=== PATIENT | male | born 1985 | race Caucasian/White ===

== ENCOUNTER 2019-01-06 06:24 | Day surgery (SDC) | payer MEDICAID, SELFPAY ==
[2019-01-06] VITALS (7 sets, daily range): BP systolic 104–134; BP diastolic 59–84; PULSE 59–71; RESP 16–17; TEMP 36–36.9; O2SAT 91–99; BMI 23.3
[2019-01-06] MEDS: Bacitracin 500 UNITS/GM PACKET (07:40)
--- NOTE | 2019-01-06 08:13 | OP.PCM_ITS ---
Problem List (1) Disorder of right pinna Status: Chronic Report of Operation Date of Procedure: 01/06/19 Pre-Operative Diagnosis: Chronic cartilage cyst of right ear Post-Operative Diagnosis: Same Surgery/Procedure Performed:: Excision of portion of cartilage of right ear Description of Surgical Findings:: Juliano is a 34-year-old male who historically developed a cystic lesion of the left scaphoid area of the ear that failed to resolve with extensive medical therapy and ultimately required surgical excision for remediation. He now presents with a similar lesion recurring on the right side again over the scaphoid portion of the right external ear. Given his prior history and the recurrence of this lesion on the contralateral side the above procedure was again offered for definitive treatment as this did cause him some discomfort which is acutely worsened after attempting to express material from the site by applying external pressure. The risks, alternatives, potential benefits, and complications were discussed at length and any questions answered to the patient and/or caregiver's satisfaction. Witnessed informed consent was obtained in the office, and the patient and/or caregiver was agreeable to proceed. Procedure went as follows: The patient was identified in the preoperative holding brought to the operating room was placed under monitored anesthesia care. When appropriate anesthesia obtained, 1% lidocaine with 100,000 epinephrine was then injected for a auricular block for a total of 4 cc. After lying for vasoconstriction, a 15 blade scalpel was then used to make an incision within the groove along the helical rim 2.5 cm in length. Encountered within the layers of the cartilage was a yellow orange mucinous material which was fully expressed and removed. The skin overlying the lateral aspect of the cartilaginous cyst was then freed from the underlying cartilage and this was then removed with its cartilaginous layer and perichondrium. This was then widely debrided to remove the entire lateral surface of the cystic component of the ear cartilage. Using a sponge the underlying cartilage was abraded of any residual adherent and mucus secreting tissue. The resected portion of the cyst wall was then sent for pathologic evaluation. The wound was then closed with interrupted 5-0 Monocryl suture along the skin edge with in terrupted quilting stitches applied through and through the skin of the ear to obliterate the space and prevent reaccumulation of the cystic fluid. The patient was then returned to anesthesia where he was revived without comp occasion having tolerated the procedure well. Area excised resulting in a 2.5 x 2 cm portion of the cartilage of the superior aspect of the external ear. Type of Anesthesia:: MAC/Supplemental/Local Anesthesiologist: Yunior Clifford Special Medications: none Specimen's removed: cartilage cyst of external ear Drains: none Estimated Blood Loss (mL): 5 mL Fluids Replaced: 600 mL - Complications none - Admit VTE Documentation VTE Present on Admission: No VTE Mechan Device Prophylaxis: SCD's VTE Pharm Prophylaxis ordered?: No
--- NOTE | 2019-01-06 08:15 | PCM.DC ---
- Discharge Diagnoses Current Active Problems: Current Active and Chronic Problems Disorder of right pinna (Chronic) You will use the following diet at home:: No restrictions Your food should be the consistency of: Regular Discharge Activity: Return to Normal Activity, May not drive while taking narcotic pain medications. Call your doctor if your incision/area has: Continuous Slow Oozing, Increased Pain/ Swelling, Foul Smelling Discharge, Swelling at the incision site Call your doctor if you observe: Fever of 101 or Higher, Uncontrolled pain Cleanse incision/area with: Keep Dressing Clean & Dry Allergies/Adverse Reactions: Allergies No Known Allergies Allergy (Verified 01/06/19 06:42) Medications to take at Discharge Albuterol Inhaler [Ventolin Hfa (SP)] 1 - 2 puff INHALATION Q4H PRN PRN 01/03/19 Hydrocodone Bitart/Apap 5-325 [[place] 5MG-325MG] 1 - 2 tablet PO Q4H PRN PRN 01/03/19 Paroxetine HCl [Paxil] 10 mg PO DAILY 01/03/19 Primary Care Physician: Thomas Le [NON-STAFF] - Test Results: Test results from this visit will be discussed in further detail at your follow-up appointment, if applicable. Please Follow Up With: Nabor Lisa MD When: 2 weeks
--- NOTE | 2019-01-06 08:20 | CYST_PTH ---
PATIENT: ANABEL MARQUIS [place] [facility] [place][id number] AGE/SX: 34/M ROOM: RE01/06/[address]: Dr. Nabor Lisa MD : 1985 BED: DIS: 01/06/2019 SPEC #: [id number] RECD: 01/06/19 14:58 STATUS: VETO CARLY #: [id number] DMITRIY: 01/06/19 08:[address]: Nabor Lisa DEPT: SURGICAL PATHOLOGY RECD BY: Bethel Rankin ENTERED: 01/09/19 08:11 SP TYPE: Cyst OTHR DR: No Primary Care Phys Tissues: Ear, NOS Procedures: Surgery Specimen Level IV HEADER OPERATION: Excision external cyst, ear PRE-OP DIAGNOSIS: Disorder of right pinna TISSUE SUBMITTED: Cystic lesion right ear MICROSCOPIC DIAGNOSIS Cystic lesion of right ear, biopsy: Benign fibrous wall cyst. See microscopic description. AM:allison 2/19/19 COMMENT Case has been reviewed in consultation with Dr. Jones who concurs with the above diagnosis. IDC:GRACIE MICROSCOPIC DESCRIPTION Slides are reviewed. Sections show benign fibrous wall cyst with associated recent hemorrhage surrounded by benign fibrocartilaginous tissue. There is no evidence of malignancy. GROSS DESCRIPTION Received in fixative is one container labeled with the patient's name and designated cystic lesion right ear. The specimen consists of two pieces of estevez soft tissue measuring 1.2 x 0.6 x 0.1 cm and 0.5 x 0.2 x 0.1 cm. The larger piece is bisected. The entire specimen is submitted in one cassette. / Gumaro 01/09/19 TC:5 CPT: 92883
== END 2019-01-06 11:26 | disposition home or self-care (01) ==
LOC: SDC 06:26 → AC 06:27
PROVIDERS: Referring Provider Otolaryngology; Visit Provider Otolaryngology
PROC: (CPT 69100; principal; 2019-01-06 08:05)
DX: H61.101 Unspecified noninfective disorders of pinna, right ear (principal); J33.8 Other polyp of sinus; J45.909 Unspecified asthma, uncomplicated; D71 Functional disorders of polymorphonuclear neutrophils; J34.2 Deviated nasal septum
CPT/HCPCS: 00120; 69100; 88304; 88305; J7120; J2405

== ENCOUNTER → 2019-05-22 16:51 | Outpatient (CLI) | payer MEDICAID, SELFPAY ==
[2019-01-06 06:43] VITALS: BMI 23.3
--- NOTE | 2019-05-22 17:00 | CT_ITS ---
STUDY: CT MAXILLOFACIAL SINUSES REASON FOR EXAM: Male, 34 years old. Nasal polyp, sinus congestion x 1 year, trouble breathing thru nose. RADIATION DOSAGE (If Supplied By Facility): CTDIvol = ( 33.45 ) mGy, DLP = ( 834.91 ) mGycm TECHNIQUE: The patient was scanned in a multi detector CT scanner. High resolution axial imaging was performed without the administration of intravenous contrast material. Sagittal and coronal images were reconstructed. Individualized dose optimization techniques were used for this CT. COMPARISON: None. FINDINGS: Relatively small frontal sinuses. Mild mucosal thickening in the left frontoethmoidal recess. Opacification of many of the left ethmoid air cells. Mild mucosal thickening throughout the bilateral ethmoid air cells. Hypodeveloped right maxillary sinus with marked mucosal thickening and prominent deficiency of the medial wall into which the right middle nasal turbinate herniates. Prominent mucosal thickening throughout the left maxillary sinus also with significant deficiency of the medial wall. Significant deviation of the nasal septum to the right. Enlargement of the bilateral middle turbinates. Normal sphenoid sinuses. Grossly normal orbits and visualized intracranial contents. CT/Sinus/Facial Bone IMPRESSION: Extensive chronic paranasal sinusitis. Electronically Signed: Noah Quiñones MD at 22:46 EDT , Service support ,
== END ==
PROVIDERS: Referring Provider Otolaryngology; Visit Provider Otolaryngology
DX: J33.8 Other polyp of sinus (principal)
CPT/HCPCS: 70486

== ENCOUNTER 2019-06-02 07:52 | Day surgery (SDC) | payer MEDICAID, SELFPAY ==
[2019-01-06 06:43] VITALS: BMI 23.3
[2019-06-02] VITALS (7 sets, daily range): BP systolic 132–160; BP diastolic 76–98; PULSE 57–93; RESP 16–18; TEMP 36.3–37.3; O2SAT 94–98; BMI 24.0
--- NOTE | 2019-06-02 | SEP_PTH ---
PATIENT: ANABEL MARQUIS LOC: [facility] – [place] U#:[id number] AGE/SX: 34/M ROOM: RE06/02/[address]: Dr. Nabor Lisa MD : 1985 BED: DIS: 06/02/2019 SPEC #: [id number] RECD: 06/02/19 13:59 STATUS: VETO CARLY #: [id number] DMITRIY: 06/02/19 00:[address]: Nabor Lisa DEPT: SURGICAL PATHOLOGY RECD BY: Bethel Rankin ENTERED: 06/02/19 13:59 SP TYPE: SEPTUM OTHR DR: Dr. Thomas Le MD Tissues: A - Nasal septum, NOS B - Ethmoid sinus, NOS C - Ethmoid sinus, NOS Procedures: Decalcification bone/plaque Surgery Specimen Level III HEADER OPERATION: Septoplasty, endoscopy nasal sinus surgery with total ethmoid PRE-OP DIAGNOSIS: Polyp of nasal sinus; deviated nasal septum TISSUE SUBMITTED: A - Nasal septum contents, B - Left sinus contents, C - Right sinus contents MICROSCOPIC DIAGNOSIS A. Nasal septum, septoplasty: Fragments of hyaline cartilage and bone with reparative and reactive change. Clinically deviated septum. Fragments of respiratory epithelium with mild chronic inflammation. B. Left sinus contents, excision: Consistent with chronic sinusitis. Fragments of bone with no pathologic change. Focal benign lymphoid tissue. C. Right sinus contents, excision: Consistent with chronic sinusitis. Fragments of bone with no pathologic change. AM:allison 06/07/19 MICROSCOPIC DESCRIPTION Slides are reviewed. GROSS DESCRIPTION A - Received in fixative is one container labeled with the patient's name and designated nasal septal contents. The specimen consists of multiple fragments of cartilage and bone that in aggregate measure 3 x 3 x 0.4 cm. The entire specimen is submitted in one cassette after decalcification. B - Received in fixative is one container labeled with the patient's name and designated left ethmoid sinus contents. The specimen consists of multiple fragments of hemorrhagic soft tissue mixed with possible fragments of bone that in aggregate measure 5 x 3 x 0.3 cm. Also present in the container is a piece of turbinate measuring 3 x 1 x 1 cm. The entire specimen is submitted in three cassettes as follows: 1-2 - hemorrhagic soft tissue, 3 - turbinate. C - Received in fixative is one container labeled with the patient's name and designated right ethmoid sinus contents. The specimen consists of multiple fragments of hemorrhagic soft tissue mixed with possible fragments of bone that in aggregate measure 7.5 x 3 x 0.3 cm. The entire specimen is submitted in three cassettes after decalcification. / GRACIE:allison 06/02/19 TC:3 CPT: 05725 x3, 42156 x2
[2019-06-02] MEDS: Oxymetazoline 0.05% 1 SPRAY SPRAY.BTL 15 SPRAY (11:17)
[2019-06-02] MEDS: Lidocaine 4% 50 ML Bottle (11:17)
[2019-06-02] MEDS: Bacitracin 500 UNITS/GM PACKET (12:28)
--- NOTE | 2019-06-02 12:39 | OP.PCM_ITS ---
Problem List (1) Deviated nasal septum Status: Chronic (2) Chronic ethmoidal sinusitis Status: Chronic (3) Chronic maxillary sinusitis Status: Chronic Report of Operation Date of Procedure: 06/02/19 Pre-Operative Diagnosis: Deviated nasal septum, chronic maxillary and ethmoid sinusitis Post-Operative Diagnosis: same Surgery/Procedure Performed:: Septoplasty, bilateral endoscopic maxillary antrostomies, total ethmoidectomies Description of Surgical Findings:: Juliano is a 34-year-old male who presents for evaluation of chronic and progressive nasal obstruction. This is been treated with nasal steroid without relief. Examination showed a large polyp filling the left nasal passage as well as posterior rightward nasal septal deviation. CT scan showed changes consistent with chronic maxillary sinus disease and the above procedure was offered in hopes of relief. The risks, alternatives, potential complications, and benefits were discussed at length and any questions answered to the patient and/or caregiver's satisfaction. Witnessed informed consent was obtained in the office, and the patient and/or caregiver was agreeable to proceed. Procedure went as follows: The patient was identified in the preoperative holding and brought to the operating room, was placed under general anesthesia a nd intubated. When appropriate anesthesia was obtained, the navigational head gear was placed and confirmed to be operational in accordance with the port patrol officer's directions. Pledgets soaked in a 50-50 mixture of oxymetazoline and 4% topical lidocaine were placed to decongest the nasal mucosa. The nasal septum was then injected beginning on the left side with 1% lidocaine with 100,000 epinephrine for a total of 3 mL. The pledgets were then removed and the left nasal cavity examined. There was noted to be significant nasal septal deviation to the right. Using a 15 blade scalpel, a hemitransfixion incision was then made on the left side and using the Sabi elevator a subperichondrial/periosteal flap was elevated. The septum was then transected at the bony cartilaginous junction and a similar flap raised on the contralateral side. Using a Gold forceps, the septum was then sharply transected superiorly and the deviated portions removed with a Sarina forceps. Any inferior bony spur was then removed with a chisel allowing for midline placement of the nasal septum. The hemitransfixion incision was then closed with interrupted 4-0 chromic gut suture followed by a 4-0 plain quilting suture to reapproximate the mucosal flaps. Beginning on the left side using a 0? endoscope the nasal cavity examined. The insertion of the middle turbinate and uncinate process was then injected with 1% lidocaine with 100,000 epinephrine for a total of 2 mL, and a similar injection was then carried on the contralateral side. Upon returning to the left side, the middle turbinate was medialized with a Magoffin elevator. This had a largely developed fide bullosa and was completely involved with polypoid mucosal changes and was removed. This allowed examination of the maxillary sinus ostia which was then probed with a double ball seeker. The uncinate process was then outfractured with a J curette and transected with a backbiting forceps. This was then removed with the microdebrider creating a wide maxillary antrostomy. The ethmoid bulla was then entered and a total ethmoidectomy was then carried out working posteriorly to anterior. Any polyps, scar, and mucous secretions were removed. Pledgets soaked in oxymetazoline were then placed for hemostasis and attention turned to the contralateral side. Similar procedure and findings were then carried out where a low-lying maxillary ostium was encountered. Dissection was carefully carried out inferiorly to avoid injury to the lamina papyracea of the orbit. This was then followed by total ethmoidectomy. Floseal hemostatic agent was then applied. Coe splints coated with Bacitracin ointment were then applied to each nasal cavity and secured at the columella with a single 3-0 Prolene suture. An NG tube was then placed to decompress the stomach and the patient returned to anesthesia, revived and extubated having tolerated the procedure well. Type of Anesthesia:: General Anesthesiologist: Nabor Jose Special Medications: none Specimen's removed: nasal septal and sinus contents Drains: none Estimated Blood Loss (mL): 100 mL Fluids Replaced: 800 mL Grafts/Implants Used: Coe splints - Complications none - Admit VTE Documentation VTE Present on Admission: No VTE Mechan Device Prophylaxis: SCD's VTE Pharm Prophylaxis ordered?: No
--- NOTE | 2019-06-02 12:47 | DCINST_ITS ---
- Discharge Diagnoses Current Active Problems: Current Active and Chronic Problems Deviated nasal septum (Chronic) Chronic ethmoidal sinusitis (Chronic) Chronic maxillary sinusitis (Chronic) You will use the following diet at home:: Regular Discharge Activity: Return to Normal Activity, May not drive while taking narcotic pain medications. Call your doctor if your incision/area has: Sudden Increased Bleeding Call your doctor if you observe: Fever of 101 or Higher, Uncontrolled pain Allergies/Adverse Reactions: Allergies No Known Allergies Allergy (Verified 05/31/19 13:40) Medications to take at Discharge Albuterol Inhaler [Ventolin Hfa] 1 - 2 puff INHALATION Q4H PRN PRN 01/03/19 Montelukast [Singulair] 10 mg PO DAILY 05/31/19 Primary Care Physician: Thomas Le [Primary Care Provider] - Test Results: Test results from this visit will be discussed in further detail at your follow- up appointment, if applicable. Please Follow Up With: Nabor Lisa MD When: 5 days
[2019-06-02] MEDS: HYDROcodone Bitartrate/Apap 5/325 Tablet PO (14:09)
--- NOTE | 2019-06-02 15:56 | SUR.PHASEII ---
late entry 1415 pt sleeping in bed. family at bedside.
--- NOTE | 2019-06-02 15:57 | SUR.PHASEII ---
late entry 1500 pt has been sleeping in bed. mother to go to pharmacy to grain picker pt pain meds for home. pt requested i need food. offered pt snacks available in ac kitchen. pt reported he wanted real food. this nurse enc pt to finish getting dressed and eat once he is home. pt then cont getting dressed.
--- NOTE | 2019-06-02 16:01 | SUR.PHASEII ---
late entry 1520 pt voided in br. mother present. volunteer called to wheel pt out for discharge.
--- NOTE | 2019-06-02 16:15 | SUR.PHASEII ---
PT AND MOTHER RETURNED TO REGISTRATION DESK. REQUESTED TO FILE COMPLAINT RE: NOT BEING OFFERED MEAL PRIOR TO DISCHARGE AND FEELING RUSHED TO LEAVE. THIS NURSE EXPLAINED THE USUAL PROCEDURE OF OFFERING SNACK TO PT, WHICH PT ADMITTED TO EATING. PT STATES HE ASKED FOR REAL FOOD, AND WAS TOLD BY NURSE JAMARCUS THAT PATIENTS USUALLY JUST HAVE A LIGHT SNACK AFTER SURGERY. THIS NURSE OFFERED SUBWAY GIFT CERTIFICATE, WHICH PT AND HIS MOTHER DECLINED. PT AND MOTHER VERBALIZED APPRECIATION OF THIS NURSE'S CONCERN AND OFFER, AND VERBALIZED READINESS FOR DISCHARGE. NO FURTHER NEEDS OR COMPLAINTS VOICED. PT DID ACCEPT GATORADE AFTER COMPLAINTS OF DRY MOUTH AND VERBALIZED APPRECIATION OF THIS NURSE'S EXPLANATION OF POST OP DRY MOUTH CAUSES. ESCORTED BY WHEELCHAIR TO ERECTOR OPERATOR PARKING ENTRANCE AND MOTHER PICKED PT UP IN VEHICLE AT ENTRANCE.
== END 2019-06-02 15:42 | disposition home or self-care (01) ==
LOC: SDC 07:53 → AC 07:55
PROVIDERS: Family Provider Internal Medicine; PCP Internal Medicine; Referring Provider Otolaryngology; Visit Provider Otolaryngology
PROC: (CPT 30520; principal; 2019-06-02 09:25)
DX: J34.2 Deviated nasal septum (principal); J32.2 Chronic ethmoidal sinusitis; J32.0 Chronic maxillary sinusitis; J33.8 Other polyp of sinus; J45.909 Unspecified asthma, uncomplicated
CPT/HCPCS: 00160; 30520; 31255; 88304; 88305; 88311; J7120; J2405